=== PATIENT | female | born 1950 | race Caucasian/White ===

== ENCOUNTER → 2016-04-01 | Outpatient (POV) | LOC: OUTPT 00:01 | PROVIDERS: ATTEND Otolaryngology | DX: H91.90 Unspecified hearing loss, unspecified ear (principal) | CPT/HCPCS: 92557; 92567 ==

== ENCOUNTER 2018-03-04 09:42 | Outpatient (CLI) | payer OTHER ==
--- NOTE | 2018-03-04 11:06 | DI ---
Exam: Three views of the left foot. Comparison: None available. Reason for exam: Pain in heel. FINDINGS: No acute fracture or malalignment. The imaged osseous structures appear diffusely deminer alized. No unexplained calcific soft tissue density or radiopaque retained foreign body. Impression: No acute fracture or malalignment is seen in the left foot.
--- NOTE | 2018-03-04 11:06 | DI ---
Exam: Two views of the left calcaneus. Comparison: None available. Reason for exam: Pain in heel. FINDINGS: No definite fracture or malalignment is seen in the calcaneus. No cortical irregularities are seen. No suspicious appearing sclerotic change. There is a small calcaneal enthesiophyte. Impression: No acute fracture or malalignment is seen in the left calcaneus.
== END 2018-03-04 09:43 | disposition home or self-care (01) ==
LOC: RAD 09:42
PROVIDERS: ATTEND Internal Medicine
DX: M79.672 Pain in left foot (principal)